=== PATIENT | male | born 1985 | race Asian ===

== ENCOUNTER 2020-09-23 11:08 | Outpatient (REF) | payer OTHER, SELFPAY ==
[2020-09-23 14:22] LABS: Alanine Aminotransferase 94 U/L (0-40); Albumin Level 4.7 g/dL (3.5-5.0); Alkaline Phosphatase 67 U/L (39-117); Anion Gap 12 (12-20); Aspartate Amino Transferase 62 U/L (5-37); Bilirubin Total 0.8 mg/dL (0.0-1.0); Blood Urea Nitrogen 12 mg/dL (9-16); Calcium 9.1 mg/dL (8.4-10.2); Carbon Dioxide 25 mmol/L (22-29); Chloride 104 mmol/L (96-108); Cholesterol 249 mg/dL; Estimated Glomerular Filt Rate > 60; Glucose Fasting 98 mg/dL (60-99); HDL Cholesterol 68 mg/dL; LDL Cholesterol Calculated 158 mg/dl; Potassium 5.2 mmol/l (3.3-5.1); Sodium 136 mmol/L (135-145); Triglycerides 115 mg/dL
[2020-09-23 14:23] LABS: Glucose Urine UA NEG (NEG); Leukocyte Esterase Urine NEG (NEG); Nitrite Urine NEG (NEG); Urine Blood NEG (NEG); Urine Ketones NEG (NEG); Urine Protein NEG (NEG-TRACE)
[2020-09-23 14:25] LABS: Appearance Urine CLEAR; Color Urine YELLOW
[2020-09-23 15:04] LABS: Creatinine Urine 98.25 mg/dL; Microalbum/Creatinine Ratio Ur 10.1 ug/mg cr
[2020-09-24 04:26] LABS: HBS Num1 0.81 mIU/mL (0-7.99); HBc Num1 10.78 S/CO (0.00-0.79); ~Hepatitis B Surface Antibody NONREACTIVE (Nonreactive)
[2020-09-24 04:31] LABS: Hepatitis A Antibody IgM 0.16 Index (0-0.79); ~Hepatitis A Antibody IgM Nonreactive (Nonreactive); ~Hepatitis C Antibody Nonreactive (Nonreactive)
[2020-09-24 05:23] LABS: HBc Num2 11.11 S/CO; HBc Num3 10.31 S/CO; HBsAGNum2 Reactive; HBsAGNum3 Reactive; Hepatitis B Core Antibody Reactive (Nonreactive); Hepatitis B Surface Antigen Retest CNFM (Negative)
[2020-09-24 05:25] LABS: Hepatitis B Surface Antigen Rep Reactive (Negative)
[2020-10-01 19:33] LABS: Hepatitis Delta Antibody NEGATIVE
== END 2020-09-23 11:09 | disposition home or self-care (01) ==
LOC: HO.WFDLDS 11:08
PROVIDERS: Visit Provider Family Medicine
DX: Z00.00 Encounter for general adult medical examination without abnormal findings (principal); B19.10 Unspecified viral hepatitis B without hepatic coma; I10 Essential (primary) hypertension; N30.10 Interstitial cystitis (chronic) without hematuria
CPT/HCPCS: 80053; 80061; 81003; 82043; 84443; 86692; 86704; 86706; 86709; 86803; 87340

== ENCOUNTER 2020-11-04 09:48 | Outpatient (REF) | payer OTHER, SELFPAY ==
--- NOTE | ~2020-11-04 | US_ITS ---
EXAMINATION: US ABDOMEN LIMITED WITH LIVER ELASTOGRAPHY CLINICAL INFORMATION: R74.01 - Elevation of levels of liver transaminase levels COMPARISON: None. TECHNIQUE: Real-time imaging of the abdominal viscera. Noninvasive ultrasound liver fibrosis assessment is performed using Igor ElastPQ point quantification shear wave elastography (pSWE) with a C5-2 MHz transducer. Multiple elastography samples are obtained. FINDINGS: PANCREAS: The pancreas is obscured by bowel gas and not imaged. LIVER: The liver is normal in size and smooth in contour. There is increased hepatic parenchymal echogenicity suggesting hepatic steatosis. There is no focal hepatic parenchymal lesion or intrahepatic ductal dilatation. The right lobe measures 16.3 cm in length. The left lobe measures 12.5 cm in length. Portal flow is towards the liver (hepatopetal). Shear wave liver elastography median stiffness is 1.44 m/s (reference: normal median stiffness is 1.3 m/s or less). IQR/median stiffness to assess sampling precision is 0.14 (reference: good quality data set is IQR/median stiffness of 0.15 or less). GALLBLADDER: Normal. The gallbladder is physiologically distended without evidence of stones, sludge, polyps, wall thickening or pericholecystic fluid. COMMON BILE DUCT: The common duct is not well visualized. Portions visualized are normal in caliber measuring up to 0.6 cm. No ductal calculus. RIGHT KIDNEY: Normal. No hydronephrosis. No renal calculi or focal parenchymal lesions. The kidney measures 10.3 cm in maximum dimension. FREE FLUID: None. US/US abdomen holder w elastography IMPRESSION: 1. Increased hepatic parenchymal echogenicity suggesting hepatic steatosis. No focal parenchymal lesion. 2. Liver elastography: In the absence of other known clinical signs, measurements rule out compensated advanced chronic liver disease. If there are known clinical signs, further testing may be needed for confirmation. 3. No cholelithiasis or ductal dilatation. 4. Pancreas obscured by bowel gas. REFERENCE: [employer] in Ultrasound Liver Stiffness Thresholds (2020): LIVER STIFFNESS THRESHOLDS: *Liver Stiffness equal or less than 1.3 m/s: High probability of being normal. *Liver Stiffness less than 1.7 m/s: In the absence of other known clinical signs, rules out compensated advanced chronic liver disease. *Liver Stiffness 1.7-2.1 m/s: Suggestive of compensated advanced chronic liver disease but need further test for confirmation. *Liver Stiffness over 2.1 m/s: Rules in compensated advanced chronic liver disease. *Liver Stiffness over 2.4 m/s: Suggestive of clinically significant portal hypertension. QUALITY OF DATA SET: *IQR/Median value equal or less than 0.15 implies a quality data set. *IQR/Median value over 0.15 implies a poor quality data set. SIGNIFICANT CHANGE FROM PRIOR EXAM: Significant change if liver stiffness measurement is 10% or greater from prior exam. OTHER CONSIDERATIONS: The stage of liver fibrosis may be overestimated in the setting of acute hepatitis, liver inflammation, elevated liver function tests, hepatic vascular congestion, obstructive cholestasis, non-fasting state, and infiltrative diseases such as amyloidosis and lymphoma. In some patients with NAFLD, the liver stiffness thresholds for compensated advanced chronic liver disease may be lower. In causes other than viral hepatitis and NAFLD, liver stiffness thresholds are not well established.
== END 2020-11-04 09:49 | disposition home or self-care (01) ==
LOC: HO.US 09:48
PROVIDERS: Visit Provider Family Medicine
DX: B19.10 Unspecified viral hepatitis B without hepatic coma (principal); R74.01 Elevation of levels of liver transaminase levels; Z71.41 Alcohol abuse counseling and surveillance of alcoholic
CPT/HCPCS: 76705; 76981

== ENCOUNTER 2020-11-18 09:09 | Outpatient (REF) | payer OTHER, SELFPAY ==
[2020-11-18 11:54] LABS: Alanine Aminotransferase 84 U/L (0-40); Albumin Level 4.3 g/dL (3.5-5.0); Alkaline Phosphatase 77 U/L (39-117); Anion Gap 12 (12-20); Aspartate Amino Transferase 55 U/L (5-37); Bilirubin Total 0.6 mg/dL (0.0-1.0); Blood Urea Nitrogen 10 mg/dL (9-16); Calcium 8.8 mg/dL (8.4-10.2); Carbon Dioxide 26 mmol/L (22-29); Chloride 107 mmol/L (96-108); Estimated Glomerular Filt Rate > 60; Glucose Random 99 mg/dL (60-115); Sodium 140 mmol/L (135-145); Total Protein 7.3 g/dL (6.5-8.0)
[2020-11-18 12:46] LABS: Creatinine Urine 122.19 mg/dL; Microalbum/Creatinine Ratio Ur 5.7 ug/mg cr
[2020-11-19 03:46] LABS: SARS COV2 IgG Negative (Negative)
[2020-11-21 08:06] LABS: Hepatitis B Viral DNA Qn - cp 2.91 Log IU/mL (NOT DETECTED); Hepatitis B Viral DNA Qn-IU/mL 815 IU/mL (NOT DETECTED)
== END 2020-11-18 09:10 | disposition home or self-care (01) ==
LOC: HO.WFDLDS 09:09
PROVIDERS: Visit Provider Family Medicine
DX: Z20.822 Contact with and (suspected) exposure to COVID-19 (principal); B19.10 Unspecified viral hepatitis B without hepatic coma; R74.01 Elevation of levels of liver transaminase levels
CPT/HCPCS: 36415; 80053; 82043; 86769; 87517